=== PATIENT | male | born 1995 ===

== ENCOUNTER 2021-06-03 17:39 | Emergency (ER) | payer BC, OTHER ==
--- NOTE | 2021-06-03 21:51 | Emergency Department Report ---
ED Male HPI - General Chief complaint: Urogenital-Male Stated complaint: TESTICULAR PAIN Time Seen by Provider: 06/03/21 20:35 Source: patient Mode of arrival: Ambulatory Limitations: No Limitations - History of Present Illness Initial comments: 26-year-old male presents emerge department complaining of sudden onset of testicular pain starting around 2 AM involving his left and right testicle but right is greater than the left. Ports no hematuria, no no dysuria no fever, chills, sweats MD Complaint: testicle pain, testicle swelling Radiation: none Severity: mild Quality: dull Consistency: constant Improves with: none Worsens with: none - Related Data Previous Rx's Medication Instructions Recorded Last Taken Type Albuterol Mdi (or & Nicu Only) 1 puff IH Q4-6H PRN #1 inha 10/11/18 Unknown Rx [ProAir HFA Inhaler] guaiFENesin/CODEINE [Robitussin AC] 5 ml PO Q6H PRN #120 ml 10/11/18 Unknown Rx predniSONE [Deltasone] 20 mg PO QDAY #5 tab 10/11/18 Unknown Rx Azithromycin [Zithromax TAB] 1,000 mg PO ONCE #2 tablet 06/03/21 Unknown Rx DOXYCYCLINE Hyclate [Vibramycin 100 mg PO BID #28 capsule 06/03/21 Unknown Rx CAP] Allergies Allergy/AdvReac Type Severity Reaction Status Date / Time No Known Allergies Allergy Unverified 10/11/18 00:19 ED Review of Systems ROS: Stated complaint: TESTICULAR PAIN Other details as noted in HPI Comment: All other systems reviewed and negative ED Past Medical Hx - Past Medical History Previous Medical History?: Yes Hx Hypertension: Yes Hx Diabetes: Yes - Surgical History Past Surgical History?: Yes Additional Surgical History: gastric bypass on February 10, 2021 - Social History Smoking Status: Never Smoker Substance Use Type: None - Medications Home Medications: Home Medications Medication Instructions Recorded Confirmed Last Taken Type Albuterol Mdi (or & Nicu Only) 1 puff IH Q4-6H PRN #1 inha 10/11/18 Unknown Rx [ProAir HFA Inhaler] guaiFENesin/CODEINE [Robitussin AC] 5 ml PO Q6H PRN #120 ml 10/11/18 Unknown Rx predniSONE [Deltasone] 20 mg PO QDAY #5 tab 10/11/18 Unknown Rx Azithromycin [Zithromax TAB] 1,000 mg PO ONCE #2 tablet 06/03/21 Unknown Rx DOXYCYCLINE Hyclate [Vibramycin 100 mg PO BID #28 capsule 06/03/21 Unknown Rx CAP] ED Physical Exam - General Limitations: No Limitations General appearance: alert, in no apparent distress - Head Head exam: Present: atraumatic, normocephalic - Eye Eye exam: Present: normal appearance - ENT ENT exam: Present: mucous membranes moist - Neck Neck exam: Present: normal inspection - Respiratory Respiratory exam: Present: normal lung sounds bilaterally. Absent: respiratory distress - Cardiovascular Cardiovascular Exam: Present: regular rate, normal rhythm. Absent: systolic murmur, diastolic murmur, rubs, gallop - GI/Abdominal GI/Abdominal exam: Present: soft, normal bowel sounds - Rectal Rectal exam: Present: deferred - External exam: Present: other (There is tenderness with palpation of the right testicle. No inguinal lymphadenopathy is noted. Minimal swelling is noted. Pain appears to be tender around the epididymal region) - Extremities Exam Extremities exam: Present: normal inspection - Back Exam Back exam: Present: normal inspection. Absent: CVA tenderness (R), CVA tenderness (L) - Neurological Exam Neurological exam: Present: alert, oriented X3, CN II-XII intact - Psychiatric Psychiatric exam: Present: normal affect, normal mood - Skin Skin exam: Present: warm, dry, intact, normal color. Absent: rash ED Course Vital Signs 06/03/21 18:53 Temperature 98.2 F Pulse Rate 91 H Respiratory 18 Rate Blood Pressure 123/68 [Right] O2 Sat by Pulse 97 Oximetry ED Medical Decision Making - Radiology Data Radiology results: report reviewed [facility] [address] [place] [address] Ultrasound Report Signed Patient: DORENE COWART MR #: [id number] : 1995 Acct:[id number] Age/Sex: 26 / M ADM Date: 06/03/21 Loc: ED Attending Dr: Ordering Physician: JULIANN TAMAYO Date of Service: 06/03/21 Procedure(s): US testicular doppler comp Accession Number(s): [id number] cc: JULIANN TAMAYO Scrotal ultrasound INDICATION: Right scrotal pain COMPARISON: None FINDINGS: Right testicle appears within normal limits with good blood flow seen. Right epididymis shows no abnormalities. Minimal right hydrocele is seen. The left testicle shows internal blood flow but has a patchily heterogenous appearance. I do not see a discrete mass lesion but the echotexture is abnormal. Left epididymis is enlarged. IMPRESSION: 1. No right-sided significant abnormalities are seen 2. Abnormal appearance of the left testicle. Possibly this represents orchitis though I cannot exclude neoplasia. Close follow-up is suggested. Internal flow is noted. 3. Probable mild left epididymitis Signer Name: Azar Becerril MD Signed: 06/03/2021 10:13 PM Workstation Name: [id number] Transcribed By: GJ Dictated By: Azar Becerril MD Electronically Authenticated By: Azar Becerril MD Signed Date/Time: 06/03/212212 DD/ 09 TD/TT: - Medical Decision Making 26-year-old male presents emerge department complaining of testicular pain and was found to have orchitis/epididymitis of the testicle he states the is not suspicious of an STD. Plan is to treat with antibiotics and have her follow-up with her primary care provider to reevaluate his testicle. Also to repeat an ultrasound does have a suspicious area which may have been suggestive of a neoplasm. Advise return emergency department should he feel his condition is worsening. Critical care attestation.: If time is entered above; I have spent that time in minutes in the direct care of this critically ill patient, excluding procedure time. ED Disposition Clinical Impression: Orchitis, Epididymo-orchitis Disposition: 01 HOME / SELF CARE / HOMELESS Is pt being admited?: No Does the pt Need Aspirin: No Condition: Stable Instructions: Orchitis, Epididymitis, Epididymitis (ED) Additional Instructions: Please be sure to follow-up with your primary care provider or the urologist for reevaluation of your testicular pain which appears to be of an infectious in nature with left testicle does have a suspicious area which needs to be reevaluated. Prescriptions: DOXYCYCLINE Hyclate [Vibramycin CAP] 100 mg PO BID #28 capsule Azithromycin [Zithromax TAB] 1,000 mg PO ONCE #2 tablet Referrals: PRIMARY CAREMD [Primary Care Provider] - 3-5 Days [facility] [Provider Group] - 3-5 Days Forms: STI Treatment and Prevention
--- NOTE | 2021-06-03 22:18 | Ultrasound Report ---
Scrotal ultrasound INDICATION: Right scrotal pain COMPARISON: None FINDINGS: Right testicle appears within normal limits with good blood flow seen. Right epididymis kathi ws no abnormalities. Minimal right hydrocele is seen. The left testicle shows internal blood flow but has a patchily heterogenous appearance. I do not see a discrete mass lesion but the echotexture is abnormal. Left epididymis is enlarged. IMPRESSION: 1. No right-sided significant abnormalities are seen 2. Abnormal appearance of the left testicle. Possibly this represents orchitis though I cannot exclud e neoplasia. Close follow-up is suggested. Internal flow is noted. 3. Probable mild left epididymitis Signer Name: Azar Becerril MD Signed: 06/03/2021 10:13 PM Workstation Name: [id number]
[2021-06-03 22:19] LABS: Bilirubin,Urine NEG (Negative); Blood,Urine NEG (Negative); Color,Urine Yellow (Yellow); Mucus,Urine 2+ /HPF; Protein,Urine <15 mg/dL mg/dL (Negative)
[2021-06-04 01:04] VITALS: BP 122/62
== END 2021-06-04 01:04 | disposition home or self-care (01) ==
LOC: ED 17:39
DX: N45.3 Epididymo-orchitis (principal); I10 Essential (primary) hypertension; E11.8 Type 2 diabetes mellitus with unspecified complications; Z98.890 Other specified postprocedural states
CPT/HCPCS: 81001; 93975; 99284